=== PATIENT | female | born 1955 | race American Indian/Alaskan Native ===

== ENCOUNTER 2017-09-29 10:36 | Outpatient (CLI) | payer MEDICARE ==
--- NOTE | 2017-09-29 15:19 | XRay Report ---
XRAY LUMBAR SPINE WITH FLEXION AND EXTENSION 6 VIEWS: 09/29/17 10:36:00 CLINICAL: Right low back pain and right hip pain. FINDINGS: Exaggerated lumbar lordosis and grade I L5-S1 spondylolisthesis. No pars defect identified. The rest of the bodies are normal alignment. The disc spaces are normal. Normal vertebral body height. No fracture. No movement in flexion and extension.Facet joint sclerosis most prominent at L5-S1, L4-5 and L3-4. Pedicles are intact. Mild bilateral SI joint sclerosis with no erosions. Calcification of the abdominal aorta. IMPRESSION: 1. Multilevel facet joint arthropathy, greater at L5-S1, L4-5 and L3-4. 2. Grade I L5-S1 spondylolisthesis no pars defect. 3. Mild bilateral sacroiliitis. 4. No instability in flexion and extension.
--- NOTE | 2017-09-29 15:23 | XRay Report ---
XRAY RIGHT HIP TWO VIEWS: 09/29/17 10:36:00 CLINICAL: Right hip pain. FINDINGS: No fracture or dislocation.Narrowing of the superior joint space and superolateral acetabular eburnation. No osteophytes. Similar changes in the left hip with greater left acetabular eburnation and subchondral geodes. The SI joints are normal. The pelvic bones are intact. IMPRESSION: Moderate hip osteoarthritis.
== END 2017-09-29 10:37 | disposition home or self-care (01) ==
LOC: SPVIMAG 10:36
PROVIDERS: ATTEND Physical Medicine & Rehabilitation
DX: M16.11 Unilateral primary osteoarthritis, right hip (principal); M43.17 Spondylolisthesis, lumbosacral region; M46.1 Sacroiliitis, not elsewhere classified; M40.47 Postural lordosis, lumbosacral region
CPT/HCPCS: 72114